=== PATIENT | female | born 1980 | race Caucasian/White ===

== ENCOUNTER 2019-03-21 12:30 | Emergency (ER) | payer MEDICAID, OTHER ==
--- NOTE | 2019-03-21 13:00 | EDM.PDOC ---
ED HPI GENERAL MEDICAL PROBLEM - General Chief Complaint: ENT Problem Stated Complaint: ear ache Time Seen by Provider: 03/21/19 12:45 Source of Information: Reports: Patient History Limitations: Reports: No Limitations - History of Present Illness INITIAL COMMENTS - FREE TEXT/NARRATIVE: Patient is a 38-year-old female who was seen not feeling well for the last 5 days states that today she started with severe left ear pain she cleaned her ear with a Q-tip at the wrist blood at this time she came in for evaluation Onset: Today Duration: Hour(s):, Constant Location: Reports: Head, Face Quality: Reports: Ache, Throbbing Improves with: Reports: None Worsens with: Reports: None Associated Symptoms: Reports: Cough - Related Data Allergies Allergy/AdvReac Type Severity Reaction Status Date / Time No Known Allergies Allergy Verified 03/21/19 12:39 Home Meds: Home Meds Albuterol [Ventolin HFA] 2 puff INH ASDIRECTED PRN 07/21/13 [History] PARoxetine [Paxil] 40 mg PO DAILY 07/21/13 [History] lamoTRIgine [Lamotrigine] 100 mg PO BID 07/21/13 [History] traZODone HCl [Trazodone HCl] 150 mg PO BEDTIME 05/19/18 [History] Albuterol Sulfate [Albuterol Sulfate Hfa] 18 gm IH Q4HWA PRN #1 [id number] 03/21 [Rx] Cefprozil [Cefzil] 500 mg PO BID 10 Days #14 tablet 03/21/19 [Rx] Non-Formulary Medication [NF Drug] 40 mg PO DAILY 03/21/19 [History] Past Medical History - Past Health History Medical/Surgical History: Denies Medical/Surgical History HEENT History: Reports: Impaired Vision Respiratory History: Reports: Asthma [employer]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: Reports: Other (See Below) Other [employer]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: tubal ligation - Past Surgical History HEENT Surgical History: Reports: Tonsillectomy GI Surgical History: Reports: Cholecystectomy ED ROS ENT - Review of Systems Review Of Systems: See Below Constitutional: Reports: No Symptoms HEENT: Reports: Ear Discharge, Ear Pain Respiratory: Reports: No Symptoms Cardiovascular: Reports: No Symptoms Endocrine: Reports: No Symptoms GI/Abdominal: Reports: No Symptoms : Reports: No Symptoms Musculoskeletal: Reports: No Symptoms Skin: Reports: No Symptoms ED EXAM, ENT - Physical Exam Exam: See Below Exam Limited By: No Limitations General Appearance: Alert, WD/WN, No Apparent Distress Ears: Canal Blood, Canal Discharge, TM Bulging Nose: Normal Inspection, Normal Mucousa, No Blood Mouth/Throat: Normal Inspection, Normal Gums, Normal Lips, Normal Oropharynx, Normal Teeth Head: Atraumatic, Normocephalic Neck: Normal Inspection, Supple, Non-Tender, Full Range of Motion Respiratory/Chest: No Respiratory Distress, Lungs Clear, Normal Breath Sounds, No Accessory Muscle Use, Chest Non-Tender Cardiovascular: Normal Peripheral Pulses, Regular Rate, Rhythm, No Edema, No Gallop, No JVD, No Murmur, No Rub GI/Abdominal: Normal Bowel Sounds, Soft, Non-Tender, No Organomegaly, No Distention, No Abnormal Bruit, No Mass (Female) Exam: Deferred Back: Normal Inspection, Full Range of Motion Extremities: Normal Inspection, Normal Range of Motion, Non-Tender, No Pedal Edema, Normal Capillary Refill Neurological: Alert, Oriented, CN II-XII Intact, Normal Cognition, Normal Gait, Normal Reflexes, No Motor/Sensory Deficits Psychiatric: Normal Affect, Normal Mood Skin: Warm, Dry, Intact, Normal Color, No Rash Lymphatic: No Adenopathy Departure - Departure Time of Disposition: 13:01 Disposition: Home, Self-Care 01 Condition: Fair Clinical Impression: Otitis media - Discharge Information *PRESCRIPTION DRUG MONITORING PROGRAM REVIEWED*: No *COPY OF PRESCRIPTION DRUG MONITORING REPORT IN PATIENT TERRY: No Referrals: Nelli Santana PA-C [Primary Care Provider] - Care Plan Goals: I will go ahead and refill her albuterol also started on Cefzil 500 twice a day for 10 days follow-up with primary if not better
== END 2019-03-21 13:30 | disposition home or self-care (01) ==
LOC: LL.ED 12:30
DX: H66.92 Otitis media, unspecified, left ear (principal); J45.909 Unspecified asthma, uncomplicated; Z79.899 Other long term (current) drug therapy
CPT/HCPCS: 99282

== ENCOUNTER 2024-09-10 14:36 | Emergency (ER) | payer SELFPAY ==
[2024-09-10 15:15] LABS: BASOPHILS ABSOLUTE AUTO 0.03 K/uL (0.00-0.20); BASOPHILS PERCENT AUTO 0.4 % (0.0-2.0); EOSINOPHILS ABSOLUTE AUTO 0.16 K/uL (0.00-0.50); EOSINOPHILS PERCENT AUTO 2.1 % (0.0-5.0); HEMATOCRIT 38.7 % (34.0-46.0); IMMATURE GRAN ABSOLUTE AUTO 0.01 10^3/uL (0.00-0.04); IMMATURE GRAN PERCENT AUTO 0.1 % (0.0-0.4); LYMPHOCYTES ABSOLUTE AUTO 2.21 K/uL (0.50-3.50); LYMPHOCYTES PERCENT AUTO 28.7 % (10.0-50.0); MEAN CORPUSCULAR HEMOGLOBIN 31.8 pg (28.2-33.3); MEAN CORPUSCULAR HGB CONC 33.6 g/dL (31.7-36.0); MEAN CORPUSCULAR VOLUME 94.6 fL (84.0-98.0); MONOCYTES ABSOLUTE AUTO 0.95 K/uL (0.00-1.00); MONOCYTES PERCENT AUTO 12.3 % (2.0-14.0); NEUTROPHILS ABSOLUTE AUTO 4.35 K/uL (1.40-7.00); NEUTROPHILS PERCENT AUTO 56.4 % (45.0-80.0); PLATELET COUNT,PLT 331 K/uL (150-350); RED BLOOD CELL COUNT 4.09 M/uL (3.77-5.09); RED CELL DISTRIBUTION WIDTH 14.4 % (11.2-14.1); WHITE BLOOD CELL COUNT,WBC 7.7 K/uL (4.0-10.2)
[2024-09-10] MEDS: methylPREDNISolone Sodium Succinate 125 MG/2 ML SDV IVPUSH ONE (15:37)
[2024-09-10] MEDS: Sodium Chloride 0.9% 10 ML Syringe FLUSH PRN (15:37)
[2024-09-10 15:41] LABS: ALBUMIN 3.8 g/dL (3.4-5.0); BILIRUBIN TOTAL 0.3 mg/dL (0.2-1.0); CALCIUM 8.7 mg/dL (8.5-10.1); CREATININE 0.93 mg/dL (0.51-1.17); EST CRCL DRUG DOSING (CG) 57.04 mL/min; POTASSIUM,K 3.5 mmol/L (3.5-5.1); PROTEIN TOTAL,TP 7.6 g/dL (6.4-8.2)
[2024-09-10 16:00] LABS: CORONAVIRUS COVID-19 NAA NEGATIVE (NEGATIVE); INFLUENZA A NAA NEGATIVE (NEGATIVE); INFLUENZA B NAA NEGATIVE (NEGATIVE); RESPIRATORY SYNCYTIAL VIR NAA POSITIVE (NEGATIVE)
== END 2024-09-10 16:04 | disposition home or self-care (01) ==
LOC: SUPCPDRO 14:36 → LL.ED 14:36
DX: J21.0 Acute bronchiolitis due to respiratory syncytial virus (principal); J45.21 Mild intermittent asthma with (acute) exacerbation; Z79.899 Other long term (current) drug therapy; Z79.51 Long term (current) use of inhaled steroids; Z90.49 Acquired absence of other specified parts of digestive tract
CPT/HCPCS: 0241U; 36415; 71046; 80053; 85025; 85379; 96374; 99285-25; J2919